=== PATIENT | female | born 1980 | race American Indian/Alaskan Native ===

== ENCOUNTER 2017-02-21 22:08 | Emergency (ER) | payer MEDICAID ==
[2017-02-21 22:09] VITALS: BMI 36.4
[2017-02-21 22:33] VITALS: RESP 16; TEMP 98
--- NOTE | 2017-02-22 00:08 | C.PDOC ---
History Of Present Illness 37 year old female who presents to the ER with a complaint of pain to the chest , back, and bilateral sides that began when she woke up this morning. Patient states she feels the pain worsens with deep inspiration and now with malaise. Patient reports she recently moved into a new apartment because her old apartment had mold; her daughter at home has similar symptoms which concerned her and prompted ER visit. Denies cough, SOB, recent travel, recent immobility or coagulopathy state. Time Seen by Provider: 02/21/17 22:46 Chief Complaint (Nursing): Cough, Cold, Congestion History Per: Patient History/Exam Limitations: no limitations Onset/Duration Of Symptoms: Hrs Current Symptoms Are (Timing): Still Present Recent travel outside of the [place]: No Past Medical History Reviewed: Historical Data, Nursing Documentation, Vital Signs Vital Signs: Last Vital Signs Temp 98 F 02/22/17 00:12 Pulse 90 02/22/17 00:12 Resp 16 02/22/17 00:12 BP 140/80 02/22/17 00:12 Pulse Ox 99 02/22/17 02:55 - Medical History PMH: No Chronic Diseases Surgical History: No Surg Hx - [facility] Procedures DPT ADMINISTRATION (01/03/15) MONITORING NOS (01/03/15) MANUAL ASSIST DELIV NEC (01/03/15) Family History: States: Unknown Family Hx - Social History Hx Tobacco Use: No Hx Alcohol Use: No Hx Substance Use: No - Immunization History Hx Influenza Vaccination: Yes Review Of Systems Constitutional: Negative for: Fever, Chills Respiratory: Negative for: Cough, Shortness of Breath Gastrointestinal: Negative for: Nausea, Vomiting, Diarrhea Musculoskeletal: Positive for: Other (Pain to chest, back, and bilateral sides) Physical Exam - Physical Exam Appears: Non-toxic, No Acute Distress Skin: Normal Color, Warm, Dry Head: Atraumatic, Normacephalic Eye(s): bilateral: Normal Inspection, PERRL Oral Mucosa: Moist Neck: Normal, Supple Chest: Symmetrical, No Tenderness Cardiovascular: Rhythm Regular Respiratory: Normal Breath Sounds, No Rales, No Rhonchi, No Wheezing Gastrointestinal/Abdominal: Soft, No Tenderness Extremity: Bilateral: Atraumatic, Normal Color And Temperature Neurological/Psych: Oriented x3, Normal Speech, Normal Cognition Gait: Steady ED Course And Treatment O2 Sat by Pulse Oximetry: 99 (Room air) Pulse Ox Interpretation: Normal - Radiology CXR: Interpreted by Me, Viewed By Me CXR Interpretation: Yes: No Acute Disease Progress Note: CXR ordered. Motrin administered. On reevaluation, patient reports pain has improved; will discharge home with instructions to follow up with PMD or return to the if symptoms worsen. Disposition Counseled Patient/Family Regarding: Diagnosis, Need For Followup, Rx Given - Disposition Disposition: HOME/ ROUTINE Disposition Time: 00:06 Condition: STABLE Additional Instructions: Please follow up with PMD continue with advil up to 600 mg as needed for pain Return to ER if worse Instructions: Musculoskeletal Pain (ED) Forms: [employer] (Citizen Of [place]) - Clinical Impression Clinical Impression: Myalgia - Scribe Statement The provider has reviewed the documentation as recorded by the Scribbull John All medical record entries made by the Erinibbull were at my direction and personally dictated by me. I have reviewed the chart and agree that the record accurately reflects my personal performance of the history, physical exam, medical decision making, and the department course for this patient. I have also personally directed, reviewed, and agree with the discharge instructions and disposition.
[2017-02-22 00:13] VITALS: BP 140/80; PULSE 90
[2017-02-22 01:36] VITALS: O2SAT 99
--- NOTE | 2017-02-22 08:12 | RAD ---
HISTORY: chest and back pain COMPARISON: None available. TECHNIQUE: Chest PA and lateral FINDINGS: Examination limited by habitus. LUNGS: No focal consolidation. Please note that chest x-ray has limited sensitivity for the detection of pulmonary masses. PLEURA: No significant pleural effusion identified. No definite pneumothorax . CARDIOVASCULAR: Heart size appears within normal limits. OSSEOUS STRUCTURES: No acute osseous abnormality identified. VISUALIZED UPPER ABDOMEN: Unremarkable. OTHER FINDINGS: None. IMPRESSION: No focal consolidation, significant pleural effusion, or definite pneumothorax identified.
== END 2017-02-22 00:13 | disposition home or self-care (01) ==
LOC: C.ER 22:08
DX: M79.1 Myalgia (principal)

== ENCOUNTER 2017-12-28 11:58 | Emergency (ER) | payer MEDICAID ==
[2017-12-28 11:58] VITALS: BMI 36.4
[2017-12-28 12:04] VITALS: O2SAT 97
--- NOTE | 2017-12-28 12:57 | C.PDOC ---
History Of Present Illness 37 y/o female presents to ED for evaluation of abdominal pain, nausea, vomiting , and constipation s/p hysterectomy on 12/20. Pt reports taking Oxycodone this week but stopped taking it because it was making her vomit. Notes her last BM was 12/22. Also notes she had chills but no fever today. She reports taking Ibuprofen today. Otherwise, denies back pain, urinary symptoms, or any other associated symptoms at this time. Time Seen by Provider: 12/28/17 12:11 Chief Complaint (Nursing): GI Problem History Per: Patient History/Exam Limitations: no limitations Onset/Duration Of Symptoms: Days Current Symptoms Are (Timing): Still Present Location Of Pain/Discomfort: Diffuse Quality Of Discomfort: "Pain" Associated Symptoms: Fever, Chills, Nausea, Vomiting, Constipation. denies: Diarrhea, Loss Of Appetite, Back Pain, Chest Pain Exacerbating Factors: None Alleviating Factors: None Recent travel outside of the [place]: No Additional History Per: Patient Past Medical History Reviewed: Historical Data, Nursing Documentation, Vital Signs Vital Signs: Last Vital Signs Temp 99.4 F 12/28/17 16:47 Pulse 96 H 12/28/17 16:47 Resp 18 12/28/17 16:47 BP 125/77 12/28/17 16:47 Pulse Ox 97 12/28/17 16:47 - [facility] Procedures DPT ADMINISTRATION (01/03/15) MONITORING NOS (01/03/15) MANUAL ASSIST DELIV NEC (01/03/15) Family History: States: Unknown Family Hx - Social History Hx Tobacco Use: No Hx Alcohol Use: No Hx Substance Use: No - Immunization History Hx Influenza Vaccination: Yes Review Of Systems Except As Marked, All Systems Reviewed And Found Negative. Constitutional: Positive for: Fever, Chills Cardiovascular: Negative for: Chest Pain Respiratory: Negative for: Shortness of Breath Gastrointestinal: Positive for: Nausea, Vomiting, Abdominal Pain, Constipation. Negative for: Diarrhea, Hematemesis Genitourinary: Negative for: Dysuria, Frequency Musculoskeletal: Negative for: Back Pain Neurological: Negative for: Weakness, Numbness Physical Exam - Physical Exam Appears: Non-toxic, No Acute Distress Skin: Normal Color, Warm, Dry Head: Atraumatic, Normacephalic Eye(s): bilateral: Normal Inspection Oral Mucosa: Moist Neck: Normal ROM, Supple Chest: Symmetrical Cardiovascular: Rhythm Regular, No Murmur Respiratory: Normal Breath Sounds, No Rales, No Rhonchi, No Wheezing Gastrointestinal/Abdominal: Soft, Tenderness (diffuse), No Guarding, No Rebound Back: No CVA Tenderness Extremity: Normal ROM, No Pedal Edema Neurological/Psych: Oriented x3, Normal Speech ED Course And Treatment - Laboratory Results Result Diagrams: 12/28/17 13:34 12/28/17 13:34 O2 Sat by Pulse Oximetry: 97 Pulse Ox Interpretation: Normal - CT Scan/US Abd & Pelvis CT Other Rad Studies (CT/US): Read By Radiologist, Radiology Report Reviewed CT/US Interpretation: FINDINGS: LOWER THORAX: Unremarkable. LIVER: Limited assessment of the upper abdomen solid organs without IV contrast administration. No evidence of discrete mass lesion in the liver. GALLBLADDER AND BILE DUCTS: Unremarkable. PANCREAS: Unremarkable. No gross lesion or ductal dilatation. SPLEEN: Unremarkable. ADRENALS: Unremarkable. No mass. KIDNEYS AND URETERS: Unremarkable. No hydronephrosis. No solid mass. VASCULATURE: Unremarkable. No aortic aneurysm. BOWEL: Few scattered colonic diverticulosis are noted without evidence of diverticulitis. . No obstruction. No gross mural thickening. APPENDIX: Unremarkable. Normal appendix. PERITONEUM: There is high attenuation free fluid in the abdomen and pelvis more prominent on the left aspect of the abdomen of uncertain etiology. The possibility of hemoperitoneum should be excluded. No evidence of free air. LYMPH NODES: Unremarkable. No enlarged lymph nodes. BLADDER: Unremarkable. REPRODUCTIVE: The uterus and adnexa are not clearly visualized in this study which could be due to hemorrhagic fluid in the pelvis. If clinically warranted further assessment by ultrasound is suggested. BONES: No acute fracture. OTHER FINDINGS: None. IMPRESSION: No evidence of nephrolithiasis or hydronephrosis. No evidence of cholecystitis pancreatitis or appendicitis. Small amount of high attenuation fluid in the abdomen and pelvis may represent hemorrhage/ blood product. Further assessment is recommended. The differential consideration includes but not limited to recently rupture adnexal hemorrhagic cyst. If clinically warranted follow-up exam with contrast may be obtained. No evidence of free air. Medical Decision Making Medical Decision Making: Plan: Blood work Obstructive series Abd & Pelvis CT IV fluids 14:52 Dr. Burns was paged 16:05 Pt was evaluated by advanced manufacturing vice president, and OB hotel controller, Dr. Holly Young, at [facility] who suggest transferring pt to [facility] where the original operation was done. Spoke with Dr. Solitario at [facility] who states that the patient can be transferred to their ED. Spoke with Dr. Garvin at [facility] ED who accepts patient under her service. Spoke with Dr. Burns who agrees with plan to transfer patient to [facility]. Disposition - Disposition Disposition: Trans to Other Acute Care Hosp Disposition Time: 18:25 Condition: GOOD Forms: [facility] ([place]) - Clinical Impression Clinical Impression: Abdominal pain - Scribe Statement The provider has reviewed the documentation as recorded by the Scribe KP All medical record entries made by the Scribe were at my direction and personally dictated by me. I have reviewed the chart and agree that the record accurately reflects my personal performance of the history, physical exam, medical decision making, and the department course for this patient. I have also personally directed, reviewed, and agree with the discharge instructions and disposition.
[2017-12-28] MEDS ORDERED: Sodium Chloride 0.9% 500 ML IV ONE ×2 (13:05→13:18)
[2017-12-28 13:42] LABS: BASO % 0.2 % (0.0-2.0); EOS % 0.3 % (0.0-4.0); HEMOGLOBIN 9.8 g/dL (11.0-16.0); LYMPH # 0.3 K/uL (1.0-4.3); MEAN CELL VOLUME 87.4 fL (81.0-99.0); MEAN CORPUSCULAR HEMOGLOBIN 29.8 pg (27.0-31.0); MEAN CORPUSCULAR HGB CONC 34.1 g/dL (33.0-37.0); MEAN PLATELET VOLUME 7.5 fL (7.2-11.7); MONO # 0.3 K/uL (0.0-0.8); MONO % 4.1 % (0.0-10.0); NEUT # 5.8 K/uL (1.8-7.0); NEUT % 90.4 % (50.0-75.0); PLATELET COUNT 323 K/uL (130-400); RED CELL DISTRIBUTION WIDTH 13.9 % (11.5-14.5); WHITE BLOOD COUNT 6.4 K/uL (4.8-10.8)
[2017-12-28 13:50] LABS: BLOOD UREA NITROGEN 14 mg/dL (7-17); CALCIUM 9.4 mg/dl (8.6-10.4); GFR NON-AFRICAN AMERICAN > 60
[2017-12-28 14:02] LABS: ANISOCYTOSIS SLIGHT; BANDS 1 % (0-2); LYMPHOCYTE 5 % (20-40); MONOCYTE 4 % (0-10); NEUTROPHIL 90 % (50-75); PLATELET ESTIMATE NORMAL (NORMAL); TOTAL CELLS COUNTED 100
[2017-12-28 14:03] LABS: HYPOCHROMIC SLIGHT; POLYCHROMIC SLIGHT
--- NOTE | 2017-12-28 14:21 | CT ---
Date of service: 12/28/2017 PROCEDURE: CT Abdomen and Pelvis without intravenous contrast HISTORY: abd pain COMPARISON: None. TECHNIQUE: Axial and reformatted coronal and sagittal CT images of the abdomen and pelvis were obtained without IV or oral contrast administration.. Contrast dose: 0 Radiation dose: Total exam DLP = 1123.95 mGy-cm. This CT exam was performed using one or more of the following dose reduction techniques: Automated exposure control, adjustment of the mA and/or kV according to patient size, and/or use of iterative reconstruction technique. FINDINGS: LOWER THORAX: Unremarkable. LIVER: Limited assessment of the upper abdomen solid organs without IV contrast administration. No evidence of discrete mass lesion in the liver. GALLBLADDER AND BILE DUCTS: Unremarkable. PANCREAS: Unremarkable. No gross lesion or ductal dilatation. SPLEEN: Unremarkable. ADRENALS: Unremarkable. No mass. KIDNEYS AND URETERS: Unremarkable. No hydronephrosis. No solid mass. VASCULATURE: Unremarkable. No aortic aneurysm. BOWEL: Few scattered colonic diverticulosis are noted without evidence of diverticulitis. . No obstruction. No gross mural thickening. APPENDIX: Unremarkable. Normal appendix. PERITONEUM: There is high attenuation free fluid in the abdomen and pelvis more prominent on the left aspect of the abdomen of uncertain etiology. The possibility of hemoperitoneum should be excluded. No evidence of free air LYMPH NODES: Unremarkable. No enlarged lymph nodes. BLADDER: Unremarkable. REPRODUCTIVE: The uterus and adnexa are not clearly visualized in this study which could be due to hemorrhagic fluid in the pelvis. If clinically warranted further assessment by ultrasound is suggested. BONES: No acute fracture. OTHER FINDINGS: None. IMPRESSION: No evidence of nephrolithiasis or hydronephrosis. No evidence of cholecystitis pancreatitis or appendicitis. Small amount of high attenuation fluid in the abdomen and pelvis may represent hemorrhage/ blood product. Further assessment is recommended. The differential consideration includes but not limited to recently rupture adnexal hemorrhagic cyst. If clinically warranted follow-up exam with contrast may be obtained. No evidence of free air.
[2017-12-28] MEDS ORDERED: Sodium Chloride 0.9% 1,000 ML IV ONE (14:47)
[2017-12-28] MEDS ORDERED: Sodium Chloride 0.9% 1,000 ML ONE (14:53)
[2017-12-28] MEDS ORDERED: Iodixanol 320 MG/ML 100 ML BOTTLE IV ONE (15:50)
--- NOTE | 2017-12-28 15:50 | CP.PCM.CON ---
<Richard Holland - Last Filed: 12/28/17 18:02> History of Present Illness - History of Present Illness History of Present Illness: Surgery: Dr. schrader CC: Abd pain HPI: 37F w. pmh of HTN s/p transvaginal hysterectomy 2/2 uterine prolapse on 12/19 at [facility] presents to ED for worsening abd pain. Pt states that since surgery she has been having diffuse abd pain, more prominent in the pelvis. She states that the pain has been constant and described as stabbing. Pt states that she saw surgeon yesterday and was told that everything was progressing as expected. However, this AM pt experienced acute worsening of pain, 02/26. She states that pain was so bad she fell to the ground. Pt reports decreased appetite an several episodes of nausea and vomiting this AM. She states that she has had some vaginal bleeding. She has to change a pad 2x/day. She states that she does have blood tinges urine. She states that she had Temp of 100 this morning and chills. She denies CP/palpitations, no SOB, however pain is exacerbated with deep inspiration. CT done in ED had findings concerning for hemorrhage vs retained blood products. PMH: HTN PSH: hysterectomy Meds: MAR reviewed NKDA Social: No ETOH/tobacco/drugs Fhx: non-contributory Review of Systems - Review of Systems All systems: reviewed and no additional remarkable complaints except (HPI) Past Patient History - Past Social History Smoking Status: Never Smoked - PSYCHIATRIC Hx Substance Use: No - SURGICAL HISTORY Hx Surgeries: No Hx Hysterectomy: Yes - ANESTHESIA Hx Anesthesia: No Hx Anesthesia Reactions: No Hx Malignant Hyperthermia: No Meds Allergies/Adverse Reactions: Allergies Allergy/AdvReac Type Severity Reaction Status Date / Time No Known Allergies Allergy Verified 12/28/17 12:04 - Medications Medications: Current Medications Sodium Chloride (Sodium Chloride 0.9%) 1,000 mls @ 1,000 mls/hr IV .Q1H ONE Stop: 12/28/17 15:46 Last Admin: 12/28/17 14:51 Dose: 1,000 mls/hr Physical Exam - Constitutional Appears: Non-toxic, No Acute Distress - Head Exam Head Exam: ATRAUMATIC, NORMOCEPHALIC - Eye Exam Eye Exam: EOMI - ENT Exam ENT Exam: Mucous Membranes Moist - Respiratory Exam Respiratory Exam: NORMAL BREATHING PATTERN. absent: Accessory Muscle Use, Respiratory Distress - GI/Abdominal Exam GI & Abdominal Exam: Soft, Tenderness (diffuse). absent: Distended, Firm, Guarding, Rebound, Rigid - Extremities Exam Extremities exam: Negative for: calf tenderness, pedal edema - Neurological Exam Neurological exam: Alert, Oriented x3 Results - Vital Signs Recent Vital Signs: Last Vital Signs Temp 99.5 F 12/28/17 12:03 Pulse 98 H 12/28/17 12:03 Resp 20 12/28/17 12:03 BP 159/78 H 12/28/17 12:03 Pulse Ox 97 12/28/17 14:54 - Labs Result Diagrams: 12/28/17 13:34 12/28/17 13:34 Labs: Laboratory Results - last 24 hr 12/28/17 12/28/17 13:34 13:34 WBC 6.4 RBC 3.30 L Hgb 9.8 L Hct 28.8 L MCV 87.4 MCH 29.8 MCHC 34.1 RDW 13.9 Plt Count 323 MPV 7.5 Neut % (Auto) 90.4 H Lymph % (Auto) 5.0 L [place] % (Auto) 4.1 Eos % (Auto) 0.3 Baso % (Auto) 0.2 Neut # (Auto) 5.8 Lymph # (Auto) 0.3 L [place] # (Auto) 0.3 Eos # (Auto) 0.0 Baso # (Auto) 0.0 Neutrophils % (Manual) 90 H Band Neutrophils % 1 Lymphocytes % (Manual) 5 L Monocytes % (Manual) 4 Platelet Estimate Normal Polychromasia Slight Hypochromasia (manual) Slight Anisocytosis (manual) Slight Sodium 142 Potassium 3.8 Chloride 101 Carbon Dioxide 29 Anion Gap 16 BUN 14 Creatinine 0.7 Est GFR ( Amer) > 60 Est GFR (Non-Af Amer) > 60 Random Glucose 132 H Calcium 9.4 - Imaging and Cardiology CT scan - abdomen Status: Image reviewed by me, Report reviewed by me Assessment & Plan - Assessment and Plan (Free Text) Assessment: 37F w/p transvaginal hysterectomy 2/2 uterine prolapse on 12/19, with acute worsening of abd pain -Pt is currently hemodynamically stable with no overt signs of bleeding -hgb is consistent with prior hgb levels in 2015 -recommend pt be transferred to [facility] where they had original operation done -d/w attending Skyler PGY4 <Gerald Schrader - Last Filed: 12/28/17 19:05> Results - Vital Signs Recent Vital Signs: Last Vital Signs Temp 99.4 F 12/28/17 16:47 Pulse 96 H 12/28/17 16:47 Resp 18 12/28/17 16:47 BP 125/77 12/28/17 16:47 Pulse Ox 97 12/28/17 16:47 - Labs Result Diagrams: 12/28/17 13:34 12/28/17 13:34 Labs: Laboratory Results - last 24 hr 12/28/17 12/28/17 13:34 13:34 WBC 6.4 RBC 3.30 L Hgb 9.8 L Hct 28.8 L MCV 87.4 MCH 29.8 MCHC 34.1 RDW 13.9 Plt Count 323 MPV 7.5 Neut % (Auto) 90.4 H Lymph % (Auto) 5.0 L [place] % (Auto) 4.1 Eos % (Auto) 0.3 Baso % (Auto) 0.2 Neut # (Auto) 5.8 Lymph # (Auto) 0.3 L [place] # (Auto) 0.3 Eos # (Auto) 0.0 Baso # (Auto) 0.0 Neutrophils % (Manual) 90 H Band Neutrophils % 1 Lymphocytes % (Manual) 5 L Monocytes % (Manual) 4 Platelet Estimate Normal Polychromasia Slight Hypochromasia (manual) Slight Anisocytosis (manual) Slight Sodium 142 Potassium 3.8 Chloride 101 Carbon Dioxide 29 Anion Gap 16 BUN 14 Creatinine 0.7 Est GFR ( Amer) > 60 Est GFR (Non-Af Amer) > 60 Random Glucose 132 H Calcium 9.4 Assessment & Plan - Assessment and Plan (Free Text) Plan: Discussed with the resident staff and agree with the above assessment and plan. Discussed with Dr. Brown in ED. Transfer to [facility] where patient underwent recent MERCERIZER procedure, rec they perform CT angiography at OSH on arrival. If delay in transfer, CT angiography can be done here to identify source and send imaging with patient on transfer so they do not have to re-image patient on arrival and can avoid additional CT radiation
--- NOTE | 2017-12-28 16:41 | CT ---
Date of service: 12/28/2017 PROCEDURE: CT Abdomen and Pelvis with contrast HISTORY: hemorrhagic fluid on non con CT COMPARISON: Comparison is made with the previous same-day CT of the abdomen and pelvis without contrast TECHNIQUE: Contrast dose: 100 mL Visipaque 320. Axial and reformatted coronal and sagittal CT images of the abdomen and pelvis were obtained after IV contrast administration Radiation dose: Total exam DLP = 1429.2 mGy-cm. This CT exam was performed using one or more of the following dose reduction techniques: Automated exposure control, adjustment of the mA and/or kV according to patient size, and/or use of iterative reconstruction technique. FINDINGS: LOWER THORAX: Unremarkable. LIVER: No evidence of acute pathology in the liver. The liver is mildly enlarged. Perihepatic slightly high attenuation fluid is again noted. GALLBLADDER AND BILE DUCTS: Unremarkable. PANCREAS: Unremarkable. No gross lesion or ductal dilatation. SPLEEN: Unremarkable. ADRENALS: Unremarkable. No mass. KIDNEYS AND URETERS: Unremarkable. No hydronephrosis. No solid mass. VASCULATURE: Unremarkable. No aortic aneurysm. BOWEL: Colonic diverticulosis are seen without evidence of diverticulitis. . No obstruction. No gross mural thickening. APPENDIX: Normal appendix. PERITONEUM: Again noted is high attenuation free fluid in the abdomen and pelvis suspicious for hemoperitoneum. No evidence of free air. No definite evidence of active contrast extravasation noted in this study LYMPH NODES: Unremarkable. No enlarged lymph nodes. BLADDER: Unremarkable. REPRODUCTIVE: The patient is status post hysterectomy. The adnexa are not clearly visualized. BONES: No acute fracture. OTHER FINDINGS: None IMPRESSION: Small amount of high attenuation fluid in the abdomen and moderate amount of high attenuation fluid in the pelvis suspicious for hemorrhage/ blood product. No definite evidence of active contrast extravasation noted in this study. The possibility of active hemorrhage at the site of the hysterectomy cannot be totally excluded. No evidence of acute pathology in the upper abdomen solid organs.
[2017-12-28 16:48] VITALS: BP 125/77; PULSE 96; RESP 18; TEMP 99.4
--- NOTE | 2017-12-28 17:53 | CP.PCM.CON ---
History of Present Illness - History of Present Illness History of Present Illness: 37 y/o P5 s/p vaginal hysterectomy, unsure of suspension procedure by patient / at Outside hospital reports had normal postop course and discharge POD #1, pt was seen by her surgeon yesterday and reports was doing well. Pt reports sudden onest of severe abdominal pain that prompted her to come to [facility] nearest emergency room. Pt reports the pain is diffuse and not alleviated with otc pain medication. Pt denies any fever, chills, chest pain, sob, difficult wit urinating, flank pain but reports some constipation. pt denies any vaginal bleeding. OB: X 5 [employer]: Hx of Pelvic organ prolase LMP 11/2017 prior to surgery PMH: HTN PSH: Vaginal Hyserecotmy FHX: non contibtory MEDS: see med rec SHX: negative etoh/tobacco/drugs NKDA Review of Systems - Review of Systems Systems not reviewed;Unavailable: Acuity of Condition, Unstable Vital Signs, Respiratory Distress, Dementia, Altered Mental Status, Intoxicated, Uncooperative, Psychotic, Intubated, Language Barrier, Other - Constitutional Constitutional: Fatigue. absent: As Per HPI, Anorexia, Chills, Daytime Sleepiness, Excessive Sweating, Fever, Frequent Falls, Headache, Increased Appetite, Lethargy, Malaise, Night Sweats, Snoring, Sleep Apnea, Weight Gain, Weight Loss, Weakness, Other - EENT Eyes: absent: As Per HPI, Blind Spots, Blurred Vision, Change in Vision, Decreased Night Vision, Diplopia, Discharge, Dry Eye, Exophthalmos, Floaters, Irritation, Itchy Eyes, Loss of Peripheral Vision, Pain, Photophobia, Requires Corrective Lenses, Sees Flashes, Spots in Vision, Tunnel Vision, Other Visual Disturbances, Loss of Vision, Other Nose/Mouth/Throat: absent: As Per HPI, Epistaxis, Nasal Congestion, Nasal Discharge, Nasal Obstruction, Nasal Trauma, Nose Pain, Post Nasal Drip, Sinus Pain, Sinus Pressure, Bleeding Gums, Change in Voice, Dental Pain, Dry Mouth, Dysphagia, Halitosis, Hoarsness, Lip Swelling, Mouth Lesions, Mouth Pain, Odynophagia, Sore Throat, Throat Swelling, Tongue Swelling, Facial Pain, Neck Pain, Neck Mass, Other - Cardiovascular Cardiovascular: absent: As Per HPI, Acrocyanosis, Chest Pain, Chest Pain at Rest , Chest Pain with Activity, Claudication, Diaphoresis, Dyspnea, Dyspnea on Exertion, Edema, Irregular Heart Rhythm, Pain Radiating to Arm/Neck/Jaw, Leg Edema, Leg Ulcers, Lightheadedness, Orthopnea, Palpitations, Paroxysmal Nocturnal Dyspnea, Pedal Edema, Radiating Pain, Rapid Heart Rate, Slow Heart Rate, Syncope, Other - Respiratory Respiratory: absent: As Per HPI, Cough, Dyspnea, Hemoptysis, Dyspnea on Exertion , Wheezing, Snoring, Stridor, Pain on Inspiration, Chest Congestion, Excessive Mucous Production, Change in Mucous Color, Pain with Coughing, Other - Gastrointestinal Gastrointestinal: Abdominal Pain, Constipation. absent: As Per HPI, Belching, Bloating, Change in Bowel Habits, Change in Stool Character, Coffee Ground Emesis, Cramping, Diarrhea, Dyspepsia, Dysphagia, Early Satiety, Excessive Flatus, Fecal Incontinence, Heartburn, Hematemesis, Hematochezia, Loose Stools, Melena, Nausea, Odynophagia, Temesmus, Vomiting, Other - Genitourinary Genitourinary: As Per HPI - Reproductive: Female Reproductive:Female: As Per HPI, S/P Hysterectomy - Menstruation Menstruation: As Per HPI - Musculoskeletal Musculoskeletal: absent: As Per HPI, Abnormal Gait, Arthralgias, Atrophy, Back Pain, Deformity, Joint Swelling, Limited Range of Motion, Loss of Height, Muscle Cramps, Muscle Weakness, Myalgias, Neck Pain, Numbness, Radiating Pain into Limb, Stiffness, Tingling, Other - Integumentary Integumentary: absent: As Per HPI, Acne, Alopecia, Bleeding Lesions, Change in Hair, Change in Nails, Change in Pigmentation, Changing Lesions, Dry Skin, Erythema, Furuncle, Hirsutism, Lesions, New Lesions, Non-Healing Lesions, Photosensitivity, Pruritus, Rash, Skin Pain, Skin Ulcer, Sores, Striae, Swelling , Unusual Bruising, Wounds, Jaundice, Other - Neurological Neurological: absent: As Per HPI, Abnormal Gait, Abnormal Hearing, Abnormal Movements, Abnormal Speech, Behavioral Changes, Burning Sensations, Confusion, Convulsions, Disequilibrium, Dizziness, Numbness, Focal Weakness, Frequent Falls , Headaches, Lack of Coordination, Loss of Vision, Memory Loss, Paresthesias, Radicular Pain, Restless Legs, Sensory Deficit, Syncope, Tingling, Tremor, Vertigo, Weakness, Other Visual Disturbances, Other - Psychiatric Psychiatric: absent: As Per HPI, Abnormal Sleep Pattern, Anhedonia, Anxiety, Auditory Hallucinations, Behavioral Changes, Change in Appetite, Change in Libido, Confusion, Depression, Difficulty Concentrating, Hallucinations, Homicidal Ideation, Hopelessness, Irritability, Memory Loss, Mood Swings, Panic Attacks, Paranoia, Suicidal Ideation, Visual Hallucinations, Tactile Hallucinations, Other - Endocrine Endocrine: absent: As Per HPI, Change in Body Appearance, Change in Libido, Cold Intolorance, Deepening of Voice, Excessive Sweating, Fatigue, Flushing, Heat Intolorance, Increase in Ring/Shoe/Hat Size, Palpitations, Polydipsia, Polyphagia, Polyuria, Other Past Patient History - Tetanus Immunizations Tetanus Immunization: Unknown - Past Social History Smoking Status: Never Smoked - PSYCHIATRIC Hx Substance Use: No - SURGICAL HISTORY Hx Surgeries: No Hx Hysterectomy: Yes - ANESTHESIA Hx Anesthesia: No Hx Anesthesia Reactions: No Hx Malignant Hyperthermia: No Meds Allergies/Adverse Reactions: Allergies Allergy/AdvReac Type Severity Reaction Status Date / Time No Known Allergies Allergy Verified 12/28/17 12:04 Physical Exam - Constitutional Appears: Well, No Acute Distress - Head Exam Head Exam: ATRAUMATIC, NORMAL INSPECTION - Eye Exam Eye Exam: EOMI, Normal appearance - ENT Exam ENT Exam: Mucous Membranes Moist - Respiratory Exam Respiratory Exam: Clear to Auscultation Bilateral, NORMAL BREATHING PATTERN - Cardiovascular Exam Cardiovascular Exam: REGULAR RHYTHM, +S1, +S2 - GI/Abdominal Exam GI & Abdominal Exam: Soft, Tenderness Additional comments: No guarding, no rebound tenderness, no rigdity External gentiali no gross abnormalites no gross vaginal blood - Extremities Exam Extremities exam: Positive for: normal inspection. Negative for: calf tenderness, full ROM, joint swelling, normal capillary refill, pedal edema, tenderness, pedal pulses present - Back Exam Back exam: NORMAL INSPECTION - Neurological Exam Neurological exam: Alert, Oriented x3 - Psychiatric Exam Psychiatric exam: Normal Affect, Normal Mood - Skin Skin Exam: Dry, Intact, Normal Color Results - Vital Signs Recent Vital Signs: Last Vital Signs Temp 99.4 F 12/28/17 16:47 Pulse 96 H 12/28/17 16:47 Resp 18 12/28/17 16:47 BP 125/77 12/28/17 16:47 Pulse Ox 97 12/28/17 16:47 - Labs Result Diagrams: 12/28/17 13:34 12/28/17 13:34 Labs: Laboratory Results - last 24 hr 12/28/17 12/28/17 13:34 13:34 WBC 6.4 RBC 3.30 L Hgb 9.8 L Hct 28.8 L MCV 87.4 MCH 29.8 MCHC 34.1 RDW 13.9 Plt Count 323 MPV 7.5 Neut % (Auto) 90.4 H Lymph % (Auto) 5.0 L [place] % (Auto) 4.1 Eos % (Auto) 0.3 Baso % (Auto) 0.2 Neut # (Auto) 5.8 Lymph # (Auto) 0.3 L [place] # (Auto) 0.3 Eos # (Auto) 0.0 Baso # (Auto) 0.0 Neutrophils % (Manual) 90 H Band Neutrophils % 1 Lymphocytes % (Manual) 5 L Monocytes % (Manual) 4 Platelet Estimate Normal Polychromasia Slight Hypochromasia (manual) Slight Anisocytosis (manual) Slight Sodium 142 Potassium 3.8 Chloride 101 Carbon Dioxide 29 Anion Gap 16 BUN 14 Creatinine 0.7 Est GFR ( Amer) > 60 Est GFR (Non-Af Amer) > 60 Random Glucose 132 H Calcium 9.4 - Imaging and Cardiology CT scan - pelvis Status: Report reviewed by me Assessment & Plan (1) Postoperative generalized abdominal pain Assessment and Plan: History and physical exam performed Labs and Vitals reviewed CT reprot reviweed Pt underwent CT with contrast suggestive of hemopeitoneum Recommend repeat cbc, IV Type and cross Pt currently hemodynamicaly stable and transfer to original [facility] In/out Pain management Status: Acute
--- NOTE | 2017-12-28 21:47 | RAD ---
Date of service: 12/28/2017 PROCEDURE: Radiographs of the chest and abdomen (obstructive series) HISTORY: abd pain COMPARISON: No prior. TECHNIQUE: AP radiograph of the chest, with upright and supine radiographs of the abdomen. FINDINGS: CHEST: Lungs: Clear. Cardiovascular: Normal size heart. No pulmonary vascular congestion. Pleura: No pleural fluid. No pneumothorax. Other findings: None. ABDOMEN AND PELVIS: Bowel: Unremarkable bowel gas pattern. No evidence of mechanical obstruction. Free air: None. Bones: Unremarkable. Other findings: None. IMPRESSION: Unremarkable radiographs of chest and abdomen. No evidence of mechanical bowel obstruction.
== END 2017-12-28 18:28 | disposition short-term general hospital (02) ==
LOC: C.ER 11:58
DX: R10.9 Unspecified abdominal pain (principal); I10 Essential (primary) hypertension